=== PATIENT | female | born 1970 | race Hispanic/Latino ===

== ENCOUNTER 2018-10-28 10:57 | Emergency (ER) | payer OTHER ==
[2018-10-28] MEDS ORDERED: DEXAMETHASONE SOD PHOSPHATE 10MG/ML 1ML VIAL ONE (11:36)
[2018-10-28] MEDS ORDERED: ACETAMINOPHEN 325 MG TAB ONE (11:36)
== END 2018-10-28 13:20 | disposition home or self-care (01) ==
LOC: EDH 10:57
DX: J06.9 Acute upper respiratory infection, unspecified (principal); Z88.2 Allergy status to sulfonamides; Z90.710 Acquired absence of both cervix and uterus
CPT/HCPCS: 96372; 99283; J1100

== ENCOUNTER → 2019-03-29 | Outpatient (CLI) | payer OTHER | END | disposition home or self-care (01) | LOC: OIH 09:31 | PROVIDERS: ATTEND Internal Medicine Cardiovascular Disease | DX: Z13.6 Encounter for screening for cardiovascular disorders (principal) | CPT/HCPCS: 75571 ==

== ENCOUNTER → 2020-03-18 | Outpatient (CLI) | payer BC, OTHER | END | disposition home or self-care (01) | LOC: SHCH 11:17 | PROVIDERS: ATTEND Internal Medicine Cardiovascular Disease | DX: Q25.6 Stenosis of pulmonary artery (principal) | CPT/HCPCS: 93306; 93356 ==

== ENCOUNTER 2023-12-30 20:31 | Emergency (ER) | payer BC, OTHER ==
[~2023-12-30] VITALS: Ht 160 cm; Wt 76.2 kg
[2023-12-30 20:53] VITALS: O2SAT 99
[2023-12-30 20:55] VITALS: BP 118/88; PULSE 88; RESP 18
[2023-12-30] MEDS: DEXAMETHASONE SOD PHOSPHATE 4 MG/ML 1ML VIAL IM ONE (21:24)
[2023-12-30] MEDS: IBUPROFEN 800 MG TAB PO ONE (21:25)
[2023-12-30 21:55] LABS: BASOPHILS # (AUTO) 0.08 K/uL (0.00-0.20); BASOPHILS % (AUTO) 0.9 % (0.0-5.0); EOSINOPHILS # (AUTO) 0.25 K/uL (0.00-0.70); EOSINOPHILS % (AUTO) 2.9 % (0.0-8.0); HEMATOCRIT 40.2 % (36-48); IMMATURE GRANULOCYTE ABSOLUTE 0.03 K/uL (0-1); LYMPHOCYTES # (AUTO) 2.1 K/uL (1.0-4.8); LYMPHOCYTES % (AUTO) 24.5 % (21.0-51.0); MEAN CORPUSCULAR HEMOGLOBIN 28.4 pg (27.0-33.0); MEAN CORPUSCULAR HGB CONC 34.6 g/dL (32.0-36.0); MONOCYTES # (AUTO) 0.4 K/uL (0.1-1.0); MONOCYTES % (AUTO) 4.8 % (3.0-13.0); NEUTROPHILS # (AUTO) 5.8 K/uL (1.8-7.7); NEUTROPHILS % (AUTO) 66.6 % (40.0-77.0); PLATELET COUNT (AUTO) 262 K/uL (130-400); RED CELL DISTRIBUTION WIDTH 12.5 % (11.0-15.5); WHITE BLOOD COUNT (AUTO) 8.7 K/uL (4.8-10.8)
[2023-12-30 22:02] LABS: CREATININE 0.8 mg/dL (0.5-1.5); POTASSIUM 4.1 mmol/L (3.5-5.1)
[2023-12-30] MEDS ORDERED: METH4TAB3 PO (22:30)
[2023-12-30] MEDS ORDERED: IBUP-2077 PO (22:30)
== END 2023-12-30 22:42 | disposition home or self-care (01) ==
LOC: EDH 20:31
DX: M26.603 Bilateral temporomandibular joint disorder, unspecified (principal); Z90.710 Acquired absence of both cervix and uterus
CPT/HCPCS: 99284; 80048; 85025; 36415; 96372; J1100